=== PATIENT | female | born 1985 | race Hispanic/Latino ===

== ENCOUNTER 2018-02-13 18:03 | Emergency (ER) | payer OTHER ==
[~2018-02-13] VITALS: Ht 162.6 cm; Wt 92.8 kg
[2018-02-13] MEDS ORDERED: ACETAMINOPHEN 325 MG TAB PO ONE (18:45)
[2018-02-13] MEDS ORDERED: POTASSIUM CHLORIDE 20 MEQ TAB CR PO STA (19:34)
== END 2018-02-13 20:30 | disposition home or self-care (01) ==
LOC: FSED 18:03
DX: R30.0 Dysuria (principal); R10.32 Left lower quadrant pain; R11.0 Nausea
CPT/HCPCS: 74177; 80053; 81003; 85025; 99284

== ENCOUNTER 2018-09-09 17:35 | Emergency (ER) | payer OTHER ==
[~2018-09-09] VITALS: Ht 162.6 cm; Wt 92.5 kg
--- OUTSIDE RECORDS SUMMARY | 2018-09-09 17:38 | XMS REPORT | Clinical Summary ---
Author Author [facility] Organization [facility] Address Unknown Phone Unavailable Care Team Providers Care Coal Carrier Name Role Phone Asked, No Pcp PCP Unavailable Allergies No Known Allergies Medications End Date Status Medication Sig Dispensed Refills Start Date Active levothyroxine (SYNTHROID, Take 50 mcg 0 LEVOXYL) 50 mcg tablet by mouth 8 every morning. Active ibuprofen (ADVIL,MOTRIN) Take 800 mg 0 400 MG tablet by mouth every 6 (six) hours as needed for mild pain. 03/18/2018 traMADol (ULTRAM) 50 mg Take 1 tablet 25 tablet 0 tablet (50 mg total) 8 by mouth every 6 (six) hours as needed for moderate pain for up to 14 days. 03/18/2018 acetaminophen with Take 10 mL by 150 mL 0 codeine mouth every 4 8 (ACETAMINOPHEN-CODEINE) (four) hours 120 mg-12 mg /5 mL (5 mL) as needed solution (pain) for up to 14 days. Active Problems Problem Noted Date Surgery follow-up examination 03/12/2018 Last Assessment & Plan: Patient is doing well since surgery. Regular activity as tolerated. Return to clinic PRN for follow-up. Patient was examined and evaluated with Dr. Evans and he agrees with the above plan. Patient verbalized understanding and agreement. Resolved Problems Problem Noted Date Resolved Date Umbilical hernia without obstruction or gangrene 12/06/2017 04/02/2018 Last Assessment & Plan: The patient had a history of incarcerated umbilical hernia that was reduced in the ER. Currently, it is reducible. I will obtain the patient's CT scan images from [facility]. The patient will be scheduled for laparoscopic umbilical hernia repair with mesh. Risks and benefits were discussed with the patient and the patient agreed to proceed. Encounters Care Team Description Date Type Specialty Alexis Evans MD Surgery follow-up examination (Primary Dx) 04/02/2018 Office Visit General Surgery Alexis Evans MD Surgery follow-up examination (Primary Dx) 03/12/2018 Office Visit General Surgery Rebecca Hunter NP 03/04/2018 Anesthesia General Surgery Event Alexis Evans MD LAPAROSCOPIC UMBILICAL HERNIA REPAIR W/ MESH 03/04/2018 Surgery General Surgery Alexis Evans MD 03/04/2018 Hospital General Surgery Encounter Marianela Barnhart RN 02/26/2018 Telephone General Surgery Alexis Evans MD Umbilical hernia without obstruction or gangrene 02/23/2018 Pre-Admit Pre-Admission Testing Testing Appointment Dangelo Friedman MA 02/17/2018 Transcribe General Surgery Orders Dangelo Friedman MA Umbilical hernia without obstruction or gangrene (Primary Dx) 01/01/2018 Transcribe General Surgery Orders Alexis Evans MD Umbilical hernia without obstruction or gangrene (Primary Dx) 12/04/2017 Office Visit General Surgery after 09/08/2017 Family History Medical History Relation Name Comments No Known Problems Daughter No Known Problems Daughter No Known Problems Father Cancer Maternal Grandfather Diabetes Maternal Grandmother Heart disease Maternal Grandmother Kidney disease Maternal Grandmother Thyroid disease Maternal Grandmother No Known Problems Mother No Known Problems Paternal Grandfather No Known Problems Paternal Grandmother Relation Name Status Comments Daughter Alive Daughter Alive Father Maternal Grandfather Maternal Grandmother Mother Alive Paternal Grandfather Paternal Grandmother Social History Date Tobacco Use Types Packs/Day Years Used Never Smoker Smokeless Tobacco: Never Used Alcohol Use Drinks/Week oz/Week Comments No Sex Assigned at Date Recorded Not on file Industry Job Start Date Occupation Not on file Not on file Not on file Travel End Travel History Travel Start No recent travel history available. Last Filed Vital Signs Time Taken Vital Sign Reading 04/02/2018 1:31 PM CDT Blood Pressure 108/65 04/02/2018 1:31 PM CDT Pulse 75 04/02/2018 1:31 PM CDT Temperature 36.4 C (97.6 F) 04/02/2018 1:31 PM CDT Respiratory Rate 16 03/04/2018 12:12 PM CDT Oxygen Saturation 97% - Inhaled Oxygen - Concentration 04/02/2018 1:31 PM CDT Weight 92.8 kg (204 lb 9.6 oz) 04/02/2018 1:31 PM CDT Height 162.6 cm (5' 4") 04/02/2018 1:31 PM CDT Body Mass Index 35.12 Plan of Treatment Health Maintenance Due Date Last Done Comments CERVICAL CANCER SCREENING 2005 INFLUENZA VACCINE 03/25/2018 Implants Device Identifier Shelf Expiration Date Model / Serial / Lot Implanted Type Area Manufactur er 08/21/2018 [id number] / / [id number] System Fixation Laparo Absorb 30 Surgical N/A: N/A [employer] Fastnr Optifix - [id number] Implants; Implanted: 03/04/2018 (Quantity not Expanders; on file) Extenders; Surgical Wires 08/21/2018 [id number] / / [id number] System Fixation Laparo Absorb 30 Surgical N/A: N/A [employer] Fastnr Optifix - [id number] Implants; Implanted: 03/04/2018 (Quantity not Expanders; on file) Extenders; Surgical Wires 11/20/2019 [id number] / / [id number] Mesh Hrnia Rpr Ventralight St 4x6in Surgical N/A: N/A [employer] Elptcl Ppe Ventrl - [id number] Mesh or Implanted: 03/04/2018 (Quantity not Tissue on file) [employer] Procedures Comments Procedure Name Priority Date/Time Associated Diagnosis NC AN ELECTIVE Routine 03/04/2018 ENDOTRACHEAL AIRWAY 8:39 AM CDT Procedure Note - Kristen Hall CRNA - 03/04/2018 8:39 AM CDT Airway Date/Time: 03/04/2018 8:13 AM Performed by: KRISTEN HALL Authorized by: JOSÉ MIGUEL GOFF Location: OR Urgency: Elective Difficult Airway: No Resident/C RNA/AA: KRISTEN HALL Performed by: resident/C RNA/AA Preoxygena pee with 100% O2: Yes C-spine Precaution s Maintained Throughout : No Mask Ventilatio n: Easy mask Final Airway Type: Endotrache al airway Final Endotrache al Airway: ETT Cuffed: Yes Technique Used: Direct laryngosco py Insertion Site: Oral Blade Type: Huy Laryngosco pe Blade/Vide olaryngosc ope Blade Size: 3 ETT Size (mm): 7.0 Cuff at minimum occlusion pressure: Yes Measured from: Lips ETT to Lips (cm): 22 Placement Verified by: CO2 detection, direct visualizat ion and equal breath sounds Laryngosco pic view: Grade I - full view of glottis Rapid Sequence Induction (RSI): No Modified RSI: No Number of Attempts at Approach: 1 REPAIR, HERNIA, 03/04/2018 Umbilical hernia without UMBILICAL, IN PATIENT 5 8:00 AM CDT obstruction or gangrene YEARS OF AGE OR OLDER Case Notes MESH Special Needs MESH ECG 12-LEAD Routine 02/23/2018 Umbilical hernia without 12:54 PM CDT obstruction or gangrene CBC HEMOGRAM Routine 02/23/2018 Umbilical hernia without 12:50 PM CDT obstruction or gangrene ZZESTIMATED GFR Routine 02/23/2018 12:27 PM CDT COMPREHENSIVE METABOLIC Routine 02/23/2018 Umbilical hernia without PANEL 12:27 PM CDT obstruction or gangrene after 09/08/2017 Results * ECG 12 lead (02/23/2018 12:54 PM CDT) Ventricular rate 72 [facility] Atrial rate 72 [facility] NC interval 142 [facility] QRSD interval 88 [facility] QT interval 374 [facility] QTC interval 409 [facility] P axis 1 30 [facility] QRS axis 1 58 [facility] T wave axis 41 [facility] EKG impression Normal sinus rhythm-Normal [facility] MUSE ECG-No previous ECGs available- Performing Organization Address City/State/[facility] Phone Number [facility] MUSE [address] [place] [address] * CBC hemogram (02/23/2018 12:50 PM CDT) WBC 8.35 4.50 - 11.00 k/uL [facility] DEPARTMENT OF PATHOLOGY AND GENOMIC MEDICINE RBC 4.81 4.20 - 5.50 m/uL [facility] DEPARTMENT OF PATHOLOGY AND GENOMIC MEDICINE HGB 12.8 12.0 - 16.0 g/dL [facility] DEPARTMENT OF PATHOLOGY AND GENOMIC MEDICINE HCT 39.7 37.0 - 47.0 % [facility] DEPARTMENT OF PATHOLOGY AND GENOMIC MEDICINE MCV 82.5 82.0 - 100.0 fL [facility] DEPARTMENT OF PATHOLOGY AND GENOMIC MEDICINE MCH 26.6 (L) 27.0 - 34.0 pg [facility] DEPARTMENT OF PATHOLOGY AND GENOMIC MEDICINE MCHC 32.2 31.0 - 37.0 g/dL [facility] DEPARTMENT OF PATHOLOGY AND GENOMIC MEDICINE RDW - SD 40.2 37.0 - 55.0 fL [facility] DEPARTMENT OF PATHOLOGY AND GENOMIC MEDICINE MPV 12.8 8.8 - 13.2 fL [facility] DEPARTMENT OF PATHOLOGY AND GENOMIC MEDICINE Platelet count 203 150 - 400 k/uL [facility] DEPARTMENT OF PATHOLOGY AND GENOMIC MEDICINE Nucleated RBC 0.00 /100 WBC [facility] DEPARTMENT OF PATHOLOGY AND GENOMIC MEDICINE Specimen Blood Performing Organization Address City/[facility] [place] [address] PATHOLOGY AND GENOMIC MEDICINE * Estimated GFR (02/23/2018 12:27 PM CDT) GFR Non Af Amer 82 mL/min/1.73 m2 [facility] DEPARTMENT OF PATHOLOGY AND GENOMIC MEDICINE GFR Af Amer >90 mL/min/1.73 m2 [facility] DEPARTMENT OF Comment: PATHOLOGY AND Chronic kidney disease: <60 GENOMIC MEDICINE mL/min/1.73m2 Kidney failure: <15 mL/min/1.73m2 The estimated GFR is calculated from the IDMS-traceable Modification of Diet in Renal Disease Equation. The accuracy of the calculation is poor when the creatinine is normal. Calculated values >90 mL/min/1.73m2 are not reported. This equation has not been validated in children (<18 years), women, the elderly (>70 years), or ethnic groups other than Caucasians and Americans. Specimen Plasma specimen Performing Organization Address City/[facility] [place] [address] PATHOLOGY AND [employer] MEDICINE * Comprehensive metabolic panel (02/23/2018 12:27 PM CDT) Sodium 140 135 - 148 mEq/L [facility] DEPARTMENT OF PATHOLOGY AND GENOMIC MEDICINE Potassium 3.9 3.5 - 5.0 mEq/L [facility] DEPARTMENT OF PATHOLOGY AND GENOMIC MEDICINE Chloride 101 98 - 112 mEq/L [facility] DEPARTMENT OF PATHOLOGY AND GENOMIC MEDICINE CO2 26 24 - 31 mEq/L [facility] DEPARTMENT OF PATHOLOGY AND GENOMIC MEDICINE Anion gap 13@ANIO 7 - 15 mEq/L [facility] DEPARTMENT OF PATHOLOGY AND GENOMIC MEDICINE BUN 13 6 - 20 mg/dL [facility] DEPARTMENT OF PATHOLOGY AND GENOMIC MEDICINE Creatinine 0.8 0.5 - 0.9 mg/dL [facility] DEPARTMENT OF PATHOLOGY AND GENOMIC MEDICINE Glucose 91 65 - 99 mg/dL [facility] DEPARTMENT OF PATHOLOGY AND GENOMIC MEDICINE Calcium 9.4 8.3 - 10.2 mg/dL [facility] DEPARTMENT OF PATHOLOGY AND GENOMIC MEDICINE Protein 7.7 6.3 - 8.3 g/dL [facility] DEPARTMENT OF Comment: PATHOLOGY AND [place] GENOMIC MEDICINE 4.6-7.0 g/dL 1 week 4.4-7.6 g/dL 7 months-1year 5.1-7.3 g/dL 1-2 years5.6-7 .5 g/dL >3 years6.0-8 .0 g/dL 18-150 6.3-8.3 g/dL Albumin 3.7 3.5 - 5.0 g/dL [facility] DEPARTMENT OF PATHOLOGY AND GENOMIC MEDICINE A/G ratio 0.9 0.7 - 3.8 [facility] DEPARTMENT OF PATHOLOGY AND GENOMIC MEDICINE Alkaline phosphatase 83 35 - 104 U/L [facility] DEPARTMENT OF PATHOLOGY AND GENOMIC MEDICINE AST 18 10 - 35 U/L [facility] DEPARTMENT OF PATHOLOGY AND GENOMIC MEDICINE ALT 24 5 - 50 U/L [facility] DEPARTMENT OF PATHOLOGY AND GENOMIC MEDICINE Total bilirubin 0.3 0.0 - 1.2 mg/dL [facility] DEPARTMENT OF PATHOLOGY AND GENOMIC MEDICINE Specimen Plasma specimen Performing Organization Address [facility]State[facility] Phone Number [facility] DEPARTMENT [address] [address] PATHOLOGY AND GENOMIC MEDICINE after 09/08/2017 Insurance Payer Benefit Subscriber ID Type Phone Address Plan / Group COMMERCIAL MISC MISC xxxxxxxxx Commercial COMMERCIAL Advance Directives Patient has advance care planning documents on file. For more information, kevyn e contact: [place] [address]
--- OUTSIDE RECORDS SUMMARY | 2018-09-09 17:38 | XMS REPORT ---
Author Author Estella Wilson Organization [employer] Address Unknown Phone Unavailable Care Team Providers Care Personal Finance Instructor Name Role Phone Etsella Wilson CP Unavailable Allergies No Known Allergies Problems Problem Type Condition Code Onset Dates Condition Status Problem Hypothyroidism E03.9 Active Problem Prediabetes R73.03 Active Problem Obesity E66.9 Active Medications No Known Medications Results No Known Results Summary Purpose [employer] Submission
--- OUTSIDE RECORDS SUMMARY | 2018-09-09 17:38 | XMS REPORT ---
Author Author Estella Wilson Organization [employer] Address Unknown Phone Unavailable Care Team Providers Care Service Delivery Supervisor Name Role Phone Estella Wilson CP Unavailable Allergies No Known Allergies Problems Problem Type Condition Code Onset Dates Condition Status Problem Adult BMI > 30 V85.30 Active Problem Prediabetes 790.29 Active Problem Obesity 278.00 Active Problem Hypothyroidism 244.9 Active Medications No Known Medications Results No Known Results Summary Purpose [employer] Submission
--- OUTSIDE RECORDS SUMMARY | 2018-09-09 17:38 | XMS REPORT ---
Author Author Estella Wilson Organization [employer] Address Unknown Phone Unavailable Care Team Providers Care Cdl Company Driver Name Role Phone Estella Wilson CP Unavailable Allergies No Known Allergies Problems Problem Type Condition Code Onset Dates Condition Status Problem Hypothyroidism E03.9 Active Problem Prediabetes R73.03 Active Problem Obesity E66.9 Active Medications No Known Medications Results No Known Results Summary Purpose [employer] Submission
--- OUTSIDE RECORDS SUMMARY | 2018-09-09 17:38 | XMS REPORT ---
Author Author Estella Wilson Organization [employer] Address Unknown Phone Unavailable Care Team Providers Care Gold Leaf Gilder Name Role Phone Estella Wilson CP Unavailable Allergies No Known Allergies Problems Problem Type Condition Code Onset Dates Condition Status Problem Hypothyroidism E03.9 Active Problem Prediabetes R73.03 Active Problem Obesity E66.9 Active Medications No Known Medications Results No Known Results Summary Purpose [employer] Submission
--- OUTSIDE RECORDS SUMMARY | 2018-09-09 17:38 | XMS REPORT | Continuity of Care Document ---
Author Author [facility] Interface Address Unknown Phone Unavailable Problems Problem Status Onset Date Classification Date Reported Comments Source Adult BMI > 30 Active Problem 03/26/2018 [facility] Prediabetes Active Problem 03/26/2018 [facility] Obesity Active Problem 03/26/2018 [facility] Hypothyroidism Active Problem 03/26/2018 [facility] Hypothyroidism Active Problem 05/21/2018 [facility] Prediabetes Active Problem 05/21/2018 [facility] Obesity Active Problem 05/21/2018 [facility] Decreased libido Active Diagnosis 04/11/2018 [facility] Fatigue, unspecified type Active Diagnosis 05/21/2018 [facility] Skin lesion Active Diagnosis 04/11/2018 [facility] Family history of cancer Active Diagnosis 04/11/2018 [facility] Dizziness and giddiness Active Diagnosis 05/21/2018 [facility] Sinus congestion Active Diagnosis 05/21/2018 [facility] Medications Medication Details Route Status Patient Instructions Ordering Provider Order Date Source BuPROPion HCl ER (SR) 1 tablet Orally Active 150 MG Orally daily am [place] 05/15/2018 [facility] Fluticasone Propionate 2 sprays in each nostril Nasally Active 50 MCG/ACT Nasally Once a day [place] 03/16/2015 [facility] Nasonex 2 sprays in each nostril Nasally Active 50 MCG/ACT Nasally Once a day [place] 09/22/2014 [facility] Meclizine HCl 1 tablet as needed Orally Active 25 MG Orally Once a day [place] [facility] Levothyroxine Sodium 1 tablet on an empty stomach in the morning Orally Active 50 MCG Orally Once a day [place] [facility] Synthroid 1 tablet Orally Active 100 MCG Orally Once a day (MUST SEE DOCTOR BEFORE NEXT REFILL) [place] [facility] Allergies, Adverse Reactions, Alerts Substance Category Reaction Severity Reaction type Status Date Reported Comments Source N.K.D.A. Adverse Reaction Info Not Available Adverse Reaction Active 05/15/2018 [facility] Immunizations Immunization Date Given Site Status Last Updated Comments Source Results Order Name Results Value Reference Range Date Interpretation Comments Source Vital Signs Vital Sign Value Date Comments Source Weight 209 05/15/2018 [facility] Height 64 05/15/2018 [facility] Heart Rate 82 05/15/2018 [facility] Diastolic (mm Hg) 60 05/15/2018 [facility] Systolic (mm Hg) 110 05/15/2018 [facility] Weight 206 04/02/2018 [facility] Height 64 04/02/2018 [facility] Temperature Oral (F) 98.0 F 04/02/2018 [facility] Heart Rate 98 04/02/2018 [facility] Diastolic (mm Hg) 60 04/02/2018 [facility] Systolic (mm Hg) 98 04/02/2018 [facility] Encounters Location Location Details Encounter Type Encounter Number Reason For Visit Attending Provider ADM Date DC Date Status Source Outpatient [id number] BLAYNE RICH 08/22/2016 Active [facility] Procedures Procedure Code Date Perfomer Comments Source
--- OUTSIDE RECORDS SUMMARY | 2018-09-09 17:38 | XMS REPORT ---
Author Author Obey Sparks Organization [employer] Address Unknown Phone Unavailable Care Team Providers Care Trimmer Meat Name Role Phone Obey Sparks CP Unavailable Allergies, Adverse Reactions, Alerts Substance Reaction Event Type N.K.D.A. Info Not Available Non Drug Allergy Problems Problem Type Condition Code Onset Dates Condition Status Problem Hypothyroidism E03.9 Active Problem Prediabetes R73.03 Active Problem Obesity E66.9 Active Assessment Fatigue, unspecified type R53.83 Active Assessment Dizziness and giddiness R42 Active Assessment Sinus congestion R09.81 Active Medications Medication Code System Code Instructions Start Date End Date Status Dosage Meclizine HCl NDC 11499157551 25 MG Orally Once a day Active 1 tablet as needed BuPROPion HCl ER (SR) NDC 82868557184 150 MG Orally daily am May 15, 2018 Active 1 tablet Levothyroxine Sodium NDC 96585457381 50 MCG Orally Once a day Active 1 tablet on an empty stomach in the morning Vital Signs Date/Time: May 15, 2018 BMI 35.87 Index Weight 209 lbs Height 64 in Cardiac Monitoring Heart Rate 82 /min Blood Pressure Diastolic 60 mm Hg Blood Pressure Systolic 110 mm Hg Results No Known Results Summary Purpose [employer] Submission
--- OUTSIDE RECORDS SUMMARY | 2018-09-09 17:38 | XMS REPORT ---
Author Author Obey Sparks Organization [employer] Address Unknown Phone Unavailable Care Team Providers Care Bundling Machine Operator Name Role Phone Obey Sparks CP Unavailable Allergies, Adverse Reactions, Alerts Substance Reaction Event Type N.K.D.A. Info Not Available Non Drug Allergy Problems Problem Type Condition Code Onset Dates Condition Status Assessment Decreased libido R68.82 Active Problem Hypothyroidism E03.9 Active Problem Prediabetes R73.03 Active Problem Obesity E66.9 Active Assessment Fatigue, unspecified type R53.83 Active Assessment Skin lesion L98.9 Active Assessment Family history of cancer Z80.9 Active Assessment Hypothyroidism E03.9 Active Medications Medication Code System Code Instructions Start Date End Date Status Dosage Meclizine HCl ND 71173393007 25 MG Orally Once a day as needed Active 1 tablet Fluticasone Propionate NDC 20921731420 50 MCG/ACT Nasally Once a day March 16, 2015 Active 2 sprays in each nostril Levothyroxine Sodium NDC 94129545079 50 MCG Orally Once a day Active 1 tablet on an empty stomach in the morning Nasonex NDC 41696943556 50 MCG/ACT Nasally Once a day Sep 22, 2014 Active 2 sprays in each nostril Synthroid ND 67096727422 100 MCG Orally Once a day (MUST SEE DOCTOR BEFORE NEXT REFILL) Active 1 tablet Vital Signs Date/Time: Apr 02, 2018 BMI 35.36 Index Weight 206 lbs Height 64 in Temperature 98.0 F Cardiac Monitoring Heart Rate 98 /min Blood Pressure Diastolic 60 mm Hg Blood Pressure Systolic 98 mm Hg Results Name Result Date Reference Range Unit Abnormality Flag TSH+Free T4 ----TSH-ICMA 4.6 [id number] uU/mL ----Free T4 by Dialysis/Engineering Document Control Clerk 1.1 [id number] ng/dL Summary Purpose [employer] Submission
--- OUTSIDE RECORDS SUMMARY | 2018-09-09 17:38 | XMS REPORT ---
Author Author Estella Wilson Organization [employer] Address Unknown Phone Unavailable Care Team Providers Care Office Clerk Assistant Name Role Phone Estella Wilson CP Unavailable Allergies No Known Allergies Problems Problem Type Condition Code Onset Dates Condition Status Problem Hypothyroidism E03.9 Active Problem Prediabetes R73.03 Active Problem Obesity E66.9 Active Medications No Known Medications Results No Known Results Summary Purpose [employer] Submission
[2018-09-09] MEDS ORDERED: CYCLOBENZAPRINE10 MG PO (18:14)
[2018-09-09] MEDS ORDERED: IBUPROFEN400 MG PO (18:19)
[2018-09-09] MEDS ORDERED: ULTRAM50 MG PO (18:22)
== END 2018-09-09 18:27 | disposition home or self-care (01) ==
LOC: FSED 17:35
DX: M54.5 Low back pain (principal); S39.012A Strain of muscle, fascia and tendon of lower back, initial encounter; M46.1 Sacroiliitis, not elsewhere classified; M54.16 Radiculopathy, lumbar region; Y93.E5 Activity, floor mopping and cleaning; Y92.008 Other place in unspecified non-institutional (private) residence as the place of occurrence of the external cause; E01.8 Other iodine-deficiency related thyroid disorders and allied conditions; E03.1 Congenital hypothyroidism without goiter
CPT/HCPCS: 99282

== ENCOUNTER 2018-11-11 12:49 | Emergency (ER) | payer OTHER ==
[~2018-11-11] VITALS: Ht 162.6 cm; Wt 92.1 kg
[~2018-11-11 12:49] MED LIST: CYCLOBENZAPRINE10 MG PO; IBUPROFEN400 MG PO; ULTRAM50 MG PO
--- OUTSIDE RECORDS SUMMARY | 2018-11-11 12:52 | XMS REPORT ---
Author Author Estella Wilson Organization [employer] Address Unknown Phone Unavailable Care Team Providers Care Wheel Setter Name Role Phone Estella Wilson CP Unavailable Allergies No Known Allergies Problems Problem Type Condition Code Onset Dates Condition Status Problem Vitamin D deficiency E55.9 Active Problem Obesity E66.9 Active Problem Hypothyroidism, unspecified type E03.9 Active Problem Hypothyroidism E03.9 Active Problem Prediabetes R73.03 Active Medications No Known Medications Results No Known Results Summary Purpose [employer] Submission
--- OUTSIDE RECORDS SUMMARY | 2018-11-11 12:52 | XMS REPORT ---
Author Author Estella Wilson Organization [employer] Address Unknown Phone Unavailable Care Team Providers Care Gi Technician Name Role Phone Estella Wilson Unavailable Allergies No Known Allergies Problems Problem Type Condition Code Onset Dates Condition Status Assessment Vitamin D deficiency E55.9 Active Problem Vitamin D deficiency E55.9 Active Problem Obesity E66.9 Active Problem Hypothyroidism, unspecified type E03.9 Active Assessment Hypothyroidism, unspecified type E03.9 Active Problem Hypothyroidism E03.9 Active Problem Prediabetes R73.03 Active Medications Medication Code System Code Instructions Start Date End Date Status Dosage Levothyroxine Sodium NDC 37625474090 50 MCG Orally Once a day Inactive 1 tablet on an empty stomach in the morning Levothyroxine Sodium ND 88935870814 100 MCG Orally Once a day October 28, 2018 Active 1 tablet on an empty stomach in the morning Vitamin D (Ergocalciferol) ND 71157079548 80131 UNIT Orally once per week October 28, 2018 Apr 14, 2019 Active 1 capsule Results No Known Results Summary Purpose [employer] Submission
--- OUTSIDE RECORDS SUMMARY | 2018-11-11 12:52 | XMS REPORT | Continuity of Care Document ---
Author Author [facility] Interface Address Unknown Phone Unavailable Problems Problem Status Onset Date Classification Date Reported Comments Source Adult BMI > 30 Active Problem 03/26/2018 [facility] Prediabetes Active Problem 03/26/2018 [facility] Obesity Active Problem 03/26/2018 [facility] Hypothyroidism Active Problem 03/26/2018 [facility] Hypothyroidism Active Problem 10/31/2018 [facility] Prediabetes Active Problem 10/31/2018 [facility] Obesity Active Problem 10/31/2018 [facility] Decreased libido Active Diagnosis 04/11/2018 [facility] Fatigue, unspecified type Active Diagnosis 05/21/2018 [facility] Skin lesion Active Diagnosis 04/11/2018 [facility] Family history of cancer Active Diagnosis 04/11/2018 [facility] Dizziness and giddiness Active Diagnosis 05/21/2018 [facility] Sinus congestion Active Diagnosis 05/21/2018 [facility] Vitamin D deficiency Active Problem 10/31/2018 [facility] History of heat-induced urticaria Active Diagnosis 10/25/2018 [facility] Hives Active Diagnosis 10/25/2018 [facility] Intertrigo Active Diagnosis 10/25/2018 [facility] Hypothyroidism, unspecified type Active Problem 10/31/2018 [facility] Medications Medication Details Route Status Patient Instructions Ordering Provider Order Date Source Levothyroxine Sodium 1 tablet on an empty stomach in the morning Orally Active 100 MCG Orally Once a day Maicol Mack 10/28/2018 [facility] Vitamin D (Ergocalciferol) 1 capsule Orally Active 75145 UNIT Orally once per week Maicol Mack 10/28/2018 [facility] Nystatin 1 application to affected area Externally Active 471039 UNIT/GM Externally Twice a day [place] 10/17/2018 [facility] Cyclobenzaprine Hcl 10 Mg Tablet Three Times A Day as needed for Back Spasm Active [facility] 09/09/2018 [facility] Ibuprofen 400 Mg Tablet Every 6 Hours as needed for Pain Active [facility] 09/09/2018 [facility] Tramadol Hcl (Ultram) 50 Mg Tablet Every 6 Hours Active [facility] 09/09/2018 [facility] BuPROPion HCl ER (SR) 1 tablet Orally Active 150 MG Orally daily am [place] 05/15/2018 [facility] Fluticasone Propionate 2 sprays in each nostril Nasally Active 50 MCG/ACT Nasally Once a day [place] 03/16/2015 [facility] Nasonex 2 sprays in each nostril Nasally Active 50 MCG/ACT Nasally Once a day [place] 09/22/2014 [facility] Meclizine HCl 1 tablet as needed Orally Active 25 MG Orally Once a day [place] [facility] Levothyroxine Sodium 1 tablet on an empty stomach in the morning Orally Active 50 MCG Orally Once a day Maicol Mack [facility] Synthroid 1 tablet Orally Active 100 MCG Orally Once a day (MUST SEE DOCTOR BEFORE NEXT REFILL) [place] [facility] Allergies, Adverse Reactions, Alerts Substance Category Reaction Severity Reaction type Status Date Reported Comments Source N.K.D.A. Adverse Reaction Info Not Available Adverse Reaction Active 10/17/2018 [facility] Immunizations Immunization Date Given Site Status Last Updated Comments Source Results Order Name Results Value Reference Range Date Interpretation Comments Source Vital Signs Vital Sign Value Date Comments Source Weight 206 10/17/2018 [facility] Height 64 10/17/2018 [facility] Heart Rate 81 10/17/2018 [facility] Diastolic (mm Hg) 64 10/17/2018 [facility] Systolic (mm Hg) 112 10/17/2018 [facility] Weight 209 05/15/2018 [facility] Height 64 05/15/2018 [facility] Heart Rate 82 05/15/2018 [facility] Diastolic (mm [...] ADM Date DC Date Status Source Outpatient [id number] BLAYNE RICH 08/22/2016 [facility] Departed Emergency Room [id number] JANET ARNOLD MD 02/13/2018 02/13/2018 [facility] Departed Emergency Room [id number] GERRY MAYNARD MD 09/09/2018 09/09/2018 [facility] Procedures Procedure Code Date Perfomer Comments Source
--- OUTSIDE RECORDS SUMMARY | 2018-11-11 12:52 | XMS REPORT ---
Author Author Estella Wilson Organization [employer] Address Unknown Phone Unavailable Care Team Providers Care Subject Scientific Research Name Role Phone Estella Wilson CP Unavailable Allergies No Known Allergies Problems Problem Type Condition Code Onset Dates Condition Status Problem Vitamin D deficiency E55.9 Active Problem Obesity E66.9 Active Problem Hypothyroidism, unspecified type E03.9 Active Problem Hypothyroidism E03.9 Active Problem Prediabetes R73.03 Active Medications No Known Medications Results No Known Results Summary Purpose [employer] Submission
--- OUTSIDE RECORDS SUMMARY | 2018-11-11 12:52 | XMS REPORT ---
Author Author Estella Wilson Organization [employer] Address Unknown Phone Unavailable Care Team Providers Care Bungy Jump Master Name Role Phone Estella Wilson CP Unavailable Allergies No Known Allergies Problems Problem Type Condition Code Onset Dates Condition Status Problem Vitamin D deficiency E55.9 Active Problem Obesity E66.9 Active Problem Hypothyroidism, unspecified type E03.9 Active Problem Hypothyroidism E03.9 Active Problem Prediabetes R73.03 Active Medications No Known Medications Results No Known Results Summary Purpose [employer] Submission
--- OUTSIDE RECORDS SUMMARY | 2018-11-11 12:52 | XMS REPORT | Clinical Summary ---
Author Author [facility] Organization [facility] Address Unknown Phone Unavailable Care Team Providers Care Seeing Eye Dog Trainer Name Role Phone Asked, No Pcp PCP [...] obtain the patient's CT scan images from [facility]. The patient will be scheduled for laparoscopic [...] Dx) 12/04/2017 Office Visit General Surgery after 11/10/2017 Family History Medical History Relation Name Comments [...] Lot Implanted Type Area Manufactur er 08/21/2018 [id number] / / [id number] System Fixation Laparo Absorb 30 Surgical N/A: N/A [employer] Fastnr Optifix - [id number] Implants; Implanted: 03/04/2018 (Quantity not Expanders; on file) Extenders; Surgical Wires 08/21/2018 [id number] / / [id number] System Fixation Laparo Absorb 30 Surgical N/A: N/A [employer] Fastnr Optifix - [id number] Implants; Implanted: 03/04/2018 (Quantity not Expanders; on file) Extenders; Surgical Wires 11/20/2019 [id number] / / [id number] Mesh Hrnia Rpr Ventralight St 4x6in Surgical N/A: N/A [employer] Elptcl Ppe Ventrl - [id number] Mesh or Implanted: 03/04/2018 (Quantity not Tissue on file) [employer] Procedures Comments Procedure Name Priority Date/Time Associated Diagnosis FL AN ELECTIVE Routine 03/04/2018 ENDOTRACHEAL AIRWAY 8:39 [...] 12:27 PM CDT obstruction or gangrene after 11/10/2017 Results * ECG 12 lead (02/23/2018 12:54 PM CDT) Ventricular rate 72 [facility] Atrial rate 72 [facility] FL interval 142 [facility] QRSD interval 88 [facility] QT interval 374 [facility] QTC interval 409 [facility] P axis 1 30 [facility] QRS axis 1 58 [facility] T wave axis 41 [facility] EKG impression Normal sinus rhythm-Normal [facility] ECG-No previous ECGs available- Performing Organization Address City/State[place] Phone Number [facility] [address] [place] [address] * CBC hemogram (02/23/2018 12:50 PM CDT) WBC 8.35 4.50 - 11.00 k/uL [facility] DEPARTMENT OF PATHOLOGY AND GENOMIC MEDICINE RBC 4.81 4.20 - 5.50 m/uL [facility] OF [facility]OLOGY AND GENOMIC MEDICINE HGB 12.8 12.0 - 16.0 g/dL [facility] OF PATHOLOGY AND GENOMIC MEDICINE HCT 39.7 37.0 - 47.0 % [facility]PART[facility] OF PATHOLOGY AND GENOMIC MEDICINE MCV 82.5 82.0 - 100.0 fL [facility] OF PATHOLOGY AND GENOMIC MEDICINE MCH 26.6 (L) 27.0 - 34.0 pg [facility] DEPART[facility] OF PATHOLOGY AND GENOMIC MEDICINE MCHC 32.2 31.0 - 37.0 g/dL [facility] DEPARTMENT OF PATHOLOGY AND GENOMIC MEDICINE RDW - SD 40.2 37.0 - 55.0 fL [facility] DEPART[facility] OF PATHOLOGY AND GENOMIC MEDICINE MPV 12.8 8.8 - 13.2 fL [facility] OF PATHOLOGY AND GENOMIC MEDICINE Platelet count 203 150 - 400 k/uL [facility] OF PATHOLOGY AND GENOMIC MEDICINE Nucleated RBC 0.00 /100 WBC [facility] DEPARTMENT OF PATHOLOGY AND GENOMIC MEDICINE Specimen Blood Performing Organization Address City/[facility] [place] [address] PATHOLOGY AND GENOMIC MEDICINE * Estimated GFR (02/23/2018 12:27 PM CDT) GFR Non Af Amer 82 mL/min/1.73 m2 [facility] DEPARTMENT OF PATHOLOGY AND GENOMIC MEDICINE GFR Af Amer >90 mL/min/1.73 m2 [facility] DEPARTMENT OF Comment: PATHOLOGY AND Chronic kidney [...] Americans. Specimen Plasma specimen Performing Organization Address City/[facility] [place] [place] [address] PATHOLOGY AND [email or web address] MEDICINE * Comprehensive metabolic panel (02/23/2018 12:27 PM CDT) Sodium 140 135 - 148 mEq/L [facility] DEPARTMENT OF PATHOLOGY AND GENOMIC MEDICINE Potassium 3.9 3.5 - 5.0 mEq/L [facility] DEPARTMENT OF PATHOLOGY AND GENOMIC MEDICINE Chloride 101 98 - 112 mEq/L [facility] OF PATHOLOGY AND GENOMIC MEDICINE CO2 26 24 - 31 mEq/L [facility] DEPARTMENT OF PATHOLOGY AND GENOMIC MEDICINE Anion gap 13@ANIO 7 - 15 mEq/L [facility] DEPARTMENT OF PATHOLOGY AND GENOMIC MEDICINE BUN 13 6 - 20 mg/dL [facility] DEPARTMENT OF PATHOLOGY AND GENOMIC MEDICINE Creatinine 0.8 0.5 - 0.9 mg/dL [facility] DEPARTMENT OF PATHOLOGY AND GENOMIC MEDICINE Glucose 91 65 - 99 mg/dL [facility] DEPARTMENT OF PATHOLOGY AND GENOMIC MEDICINE Calcium 9.4 8.3 - 10.2 mg/dL [facility] DEPARTMENT OF PATHOLOGY AND GENOMIC MEDICINE Protein 7.7 6.3 - 8.3 g/dL [facility] DEPARTMENT OF Comment: PATHOLOGY AND [place] GENOMIC MEDICINE 4.6-7.0 g/dL 1 week 4.4-7.6 g/dL 7 months-1year 5.1-7.3 g/dL 1-2 years5.6-7 .5 g/dL >3 years6.0-8 .0 g/dL 18-150 6.3-8.3 g/dL Albumin 3.7 3.5 - 5.0 g/dL [facility] DEPARTMENT OF PATHOLOGY AND GENOMIC MEDICINE A/G ratio 0.9 0.7 - 3.8 [facility] DEPARTMENT OF PATHOLOGY AND GENOMIC MEDICINE Alkaline phosphatase 83 35 - 104 U/L [facility] DEPARTMENT OF PATHOLOGY AND GENOMIC MEDICINE AST 18 10 - 35 U/L [facility] DEPARTMENT OF PATHOLOGY AND GENOMIC MEDICINE ALT 24 5 - 50 U/L [facility] DEPARTMENT OF PATHOLOGY AND GENOMIC MEDICINE Total bilirubin 0.3 0.0 - 1.2 mg/dL [facility] DEPARTMENT OF PATHOLOGY AND GENOMIC MEDICINE Specimen Plasma specimen Performing Organization Address City/State/[facility] Phone Number [facility] DEPART[facility] [address] [address] PATHOLOGY AND GENOMIC MEDICINE after 11/10/2017 Insurance Payer Benefit Subscriber ID Type Phone Address Plan / Group COMMERCIAL MISC MISC xxxxxxxxx Commercial COMMERCIAL Advance Directives Patient has advance care planning documents on file. For more information, kevyn e contact: Frank Thorne [address] [place] [address]
--- OUTSIDE RECORDS SUMMARY | 2018-11-11 12:52 | XMS REPORT ---
Author Author Obey Sparks Organization [employer] Address Unknown Phone Unavailable Care Team Providers Care Live Source Operator Name Role Phone Obey Sparks CP Unavailable Allergies, Adverse Reactions, Alerts Substance Reaction Event Type N.K.D.A. Info Not Available Non Drug Allergy Problems Problem Type Condition Code Onset Dates Condition Status Assessment Prediabetes R73.03 Active Assessment Obesity E66.9 Active Assessment Vitamin D deficiency E55.9 Active Assessment History of heat-induced urticaria Z87.2 Active Assessment Hives L50.9 Active Problem Obesity E66.9 Active Problem Hypothyroidism E03.9 Active Problem Vitamin D deficiency E55.9 Active Assessment Intertrigo L30.4 Active Assessment Hypothyroidism E03.9 Active Problem Prediabetes R73.03 Active Medications Medication Code System Code Instructions Start Date End Date Status Dosage Meclizine HCl ND 32329150577 25 MG Orally Once a day Active 1 tablet as needed Levothyroxine Sodium ND 04605315322 50 MCG Orally Once a day Active 1 tablet on an empty stomach in the morning BuPROPion HCl ER (SR) ND 57606233876 150 MG Orally daily am May 15, 2018 Active 1 tablet Nystatin ND 14867239861 576483 UNIT/GM Externally Twice a day Oct 17, 2018 December 15, 2018 Active 1 application to affected area Vital Signs Date/Time: Oct 17, 2018 BMI 35.36 Index Weight 206 lbs Height 64 in Cardiac Monitoring Heart Rate 81 /min Blood Pressure Diastolic 64 mm Hg Blood Pressure Systolic 112 mm Hg Results No Known Results Summary Purpose [employer]Works Submission
[2018-11-11] MEDS ORDERED: KETOROLAC TROMETHAMINE 60 MG/2 ML VIAL IM ONE (13:15)
--- NOTE | 2018-11-11 14:24 | Diagnostic Imaging Report ---
CT [facility] HISTORY: Headache, dizziness COMPARISON: None. TECHNIQUE: Noncontrast axial scans were obtained from skull base to the vertex. Coronal and sagittal reconstructions obtained from the axial data. One or more of the following dose reduction techniques were used: Automated exposure control, adjustment of the mA and/or kV according to patient size, and/or utilization of iterative reconstruction technique. DISCUSSION: Scalp/Skull: Unremarkable. Brain sulci: Appropriate for patient's age. Ventricles: Normal in size and configuration. No hydrocephalus. Extra-axial spaces: No masses or fluid collections. Parenchyma: No abnormal densities. No mass, hemorrhage, or large vascular territory acute infarct. Dural sinuses: No abnormal densities. Sellar/Suprasellar region: Intact. Skull base: Intact. Incidental findings: None. IMPRESSION: No intracranial abnormalities. Signed by: Dr. Fabian New M.D. on 11/11/2018 2:21 PM
[2018-11-11 14:35] VITALS: BP 107/59
== END 2018-11-11 14:42 | disposition home or self-care (01) ==
LOC: FSED 12:49
DX: R42 Dizziness and giddiness (principal)
CPT/HCPCS: 70450; 99283; J1885

== ENCOUNTER 2019-08-05 16:30 | Emergency (ER) | payer OTHER ==
[~2019-08-05] VITALS: Ht 162.6 cm; Wt 93.4 kg
[2019-08-05 17:16] VITALS: BP 112/72
--- OUTSIDE RECORDS SUMMARY | 2019-08-13 11:31 | XMS REPORT ---
Author [facility] Address Unknown Phone Unavailable Care Team Providers Care Sap Abap Programmer Name Role Phone Colin JOHNSTON Unavailable Unavailable Problems This patient has no known problems. Allergies, Adverse Reactions, Alerts This patient has no known allergies or adverse reactions. Medications This patient has no known medications. Results Test Description Test Time Test Comments Text Results Atomic Results Result Comments CT BRAIN WO-HOPD 2018-11-11 14:19:00 [place] [address] Patient Name: JUAN RAMON RIVERO MR #: [id number] : 1985 Age/Sex: 33/F Req #: [id number] [facility] Physician: Ordered by: CIELO JOHNSTON MD Report #: [id number] Location: ON LICENSE OF [facility] Room/Bed: Procedure: [id number] HOPD/CT BRAIN WO-[facility]OP[facility] Exam Date: 11/11/18 Exam Time: 1320 REPORT STATUS: Signed CT BRAIN [facility]OP[facility] HISTORY: Headache, dizziness COMPARISON: None. TECHNIQUE: Noncontrast axial scans were obtained from skull base to the vertex. Coronal and sagittal reconstructions obtained from the axial data. One or more of the following dose reduction techniques were used: Automated exposure control, adjustment of the mA and/or kV according to patient size, and/or utilization of iterative reconstruction technique. DISCUSSION: Scalp/Skull: Unremarkable. Brain sulci: Appropriate for patient's age. Ventricles: Normal in size and configuration. No hydrocephalus. Extra-axial spaces: No masses or fluid collections. Parenchyma: No abnormal densities. No mass, hemorrhage, or large vascular territory acute infarct. Dural sinuses: No abnormal densities. Sellar/Suprasellar region: Intact. Skull base: Intact. Incidental findings: None. IMPRESSION: No intracranial abnormalities. Signed by: Dr. Fabian New M.D. on 11/11/2018 2:21 PM Dictated By: FABIAN NEW MD 1421 Transcribed By: WILLIAM on 11/11/18 1421 COPY TO: CIELO JOHNSTON MD
== END 2019-08-05 17:22 | disposition home or self-care (01) ==
LOC: FSED 16:30
DX: R30.0 Dysuria (principal); N30.01 Acute cystitis with hematuria; E03.9 Hypothyroidism, unspecified
CPT/HCPCS: 80048; 80076; 81003; 81025; 85025; 85610; 87086; 87186; 99283

== ENCOUNTER 2020-11-27 17:02 | Emergency (ER) | payer BC, OTHER ==
[~2020-11-27] VITALS: Ht 162.6 cm; Wt 89.1 kg
[2020-11-27] MEDS ORDERED: SYNTHROID50 MCG PO (17:13)
[2020-11-27] MEDS ORDERED: IBUPROFEN 600 MG TAB PO STA (18:37)
[2020-11-27] MEDS ORDERED: IBUPROFEN 600 MG TAB ONE (19:12)
== END 2020-11-27 19:16 | disposition home or self-care (01) ==
LOC: FSED 17:30
DX: M79.671 Pain in right foot (principal); S93.601A Unspecified sprain of right foot, initial encounter; X58.XXXA Exposure to other specified factors, initial encounter; E03.9 Hypothyroidism, unspecified
CPT/HCPCS: 99283

== ENCOUNTER 2021-03-28 16:42 | Emergency (ER) | payer BC ==
[~2021-03-28] VITALS: Ht 162.6 cm; Wt 91.2 kg
[~2021-03-28 16:42] MED LIST changes: +SYNTHROID50 MCG PO
[2021-03-28] MEDS ORDERED: PHENAZOPYRIDIN200 MG PO (18:32)
[2021-03-28] MEDS ORDERED: BACTRIM DS TAB1 EACH PO (18:33)
== END 2021-03-28 18:45 | disposition home or self-care (01) ==
LOC: FSED 17:34
DX: R30.0 Dysuria (principal); N39.0 Urinary tract infection, site not specified; E03.9 Hypothyroidism, unspecified
CPT/HCPCS: 99283

== ENCOUNTER 2021-08-30 08:59 | Emergency (ER) | payer BC ==
[~2021-08-30] VITALS: Ht 162.6 cm; Wt 91.2 kg
[~2021-08-30 08:59] MED LIST changes: +BACTRIM DS TAB1 EACH PO; +PHENAZOPYRIDIN200 MG PO
[2021-08-30] MEDS ORDERED: THERAFLU FLU &1 EAC1 PO (09:37)
[2021-08-30] MEDS ORDERED: AZITHROMYCIN250 MG PO (09:37)
[2021-08-30] MEDS ORDERED: IBUPROFEN IB200 MG PO (09:37)
== END 2021-08-30 10:02 | disposition home or self-care (01) ==
LOC: FSED 09:44
DX: R05.9 Cough, unspecified (principal); J40 Bronchitis, not specified as acute or chronic; J06.9 Acute upper respiratory infection, unspecified; R53.81 Other malaise; E03.9 Hypothyroidism, unspecified
CPT/HCPCS: 71046; 99283

== ENCOUNTER 2022-06-18 03:41 | Emergency (ER) | payer SELFPAY ==
[~2022-06-18] VITALS: Ht 162.6 cm; Wt 90.7 kg
[~2022-06-18 03:41] MED LIST changes: +AZITHROMYCIN250 MG PO; +IBUPROFEN IB200 MG PO; +THERAFLU FLU &1 EAC1 PO
[2022-06-18] MEDS ORDERED: CEFDINIR300 MG PO (04:33)
[2022-06-18] MEDS ORDERED: PYRIDIUM200 MG PO (04:33)
[2022-06-18 04:35] VITALS: BP 126/69
== END 2022-06-18 04:35 | disposition home or self-care (01) ==
LOC: FSED 04:30
DX: R30.0 Dysuria (principal); N30.01 Acute cystitis with hematuria; E03.9 Hypothyroidism, unspecified
CPT/HCPCS: 81003; 81025; 99282

== ENCOUNTER 2024-07-12 19:50 | Emergency (ER) | payer BC, OTHER ==
[~2024-07-12] VITALS: Ht 162.6 cm; Wt 81.6 kg
[~2024-07-12 19:50] MED LIST changes: +CEFDINIR300 MG PO; +PYRIDIUM200 MG PO
[2024-07-12 20:11] VITALS: PULSE 82; RESP 18; TEMP 97.4
[2024-07-12] MEDS ORDERED: IOPAMIDOL 370 MG/ML 100 ML INFUS..BTL INJ ONE (20:57)
[2024-07-12 22:15] VITALS: BP 137/69; PULSE 80; RESP 18; TEMP 97.6; O2SAT 99
== END 2024-07-12 22:15 | disposition home or self-care (01) ==
LOC: FSED 20:11
DX: R10.12 Left upper quadrant pain (principal); K80.20 Calculus of gallbladder without cholecystitis without obstruction; R73.9 Hyperglycemia, unspecified; E03.9 Hypothyroidism, unspecified; D17.79 Benign lipomatous neoplasm of other sites; E27.9 Disorder of adrenal gland, unspecified
CPT/HCPCS: 74177; 80053; 81003; 81025; 85025; 99283; Q9967